=== PATIENT | female | born 1970 | race Caucasian/White ===

== ENCOUNTER 2023-03-24 13:50 | Inpatient (IN) | payer OTHER ==
[~2023-03-24] VITALS: Ht 157.5 cm; Wt 68.5 kg
[2023-03-29] MEDS ORDERED: NEURONTIN600 MG PO (06:43)
[2023-03-29] MEDS ORDERED: SIMETHICONE125 M1 PO (06:43)
[2023-03-29] MEDS ORDERED: POLY119PG PO (06:43)
[2023-03-29] MEDS ORDERED: IBUPROFEN800 MG PO (06:43)
== END 2023-03-29 09:28 | disposition home or self-care (01) | DRG 743 ==
LOC: O/R 03-27 05:45 → OB/GYN 03-27 05:45 → SURH 03-27 08:42 → O/R 03-27 14:07 → OB/GYN 03-27 16:13
PROVIDERS: ADMIT Obstetrics & Gynecology; ATTEND Obstetrics & Gynecology
PROC: 0UT90ZZ Resection of Uterus, Open Approach (ICD-10-PCS; principal; 2023-03-27 13:00)
DX: D25.2 Subserosal leiomyoma of uterus (principal); N80.03 Adenomyosis of the uterus; N72 Inflammatory disease of cervix uteri; Z20.822 Contact with and (suspected) exposure to COVID-19